=== PATIENT | female | born 1975 | race Caucasian/White ===

== ENCOUNTER 2017-01-25 05:27 | Inpatient (IN) | payer OTHER ==
[~2017-01-25] VITALS: Ht 175.3 cm; Wt 106.5 kg
[~2017-01-25 05:27] MED LIST: ATEN50TA41 PO; ATOR20TA9 PO; QUET25TA PO; SERT100T5 PO; TRIH5TAB2 PO; ZIPR60CA3 PO
[2017-01-25] MEDS ORDERED: SODIUM CHLORIDE 0.9% 1,000 ML IV ONE (05:42)
[2017-01-25] MEDS ORDERED: BUPR150T73 PO (06:16)
[2017-01-25 06:39] LABS: ASPARTATE AMINO TRANSFERASE 18 U/L (15-37); BLOOD UREA NITROGEN 13 mg/dL (7-18)
[2017-01-25 06:46] LABS: ACETAMINOPHEN < 2 mcg/mL (10-30)
[2017-01-25 08:54] VITALS: BP 113/76
[2017-01-25] MEDS ORDERED: POLYETHYLENE GLYCOL 17 GM PACKET PO PRN (09:30)
[2017-01-25] MEDS ORDERED: DOCUSATE 100 MG CAPSULE PO PRN (09:30)
[2017-01-25] MEDS ORDERED: ONDANSETRON 2MG/ML, 2ML IVP PRN (09:30)
[2017-01-25] MEDS ORDERED: BISACODYL 10 MG SUPP PR PRN (09:30)
[2017-01-25] MEDS: SODIUM CHLORIDE 0.9% IV SCH ×2 (10:51→21:00)
[2017-01-25] MEDS: MAGNESIUM SULFATE IV SCH ×2 (10:51→21:00)
[2017-01-25] MEDS: POTASSIUM CHLORIDE IV SCH ×2 (10:51→21:00)
[2017-01-25] MEDS: NICOTINE 14MG/24 HR PATCH.TD24 TD SCH (10:52)
[2017-01-25] MEDS: ENOXAPARIN 40 MG/0.4 ML SQ SCH (10:52)
[2017-01-25 13:39] VITALS: BP 132/91
[2017-01-25 18:38] VITALS: BP 136/77
[2017-01-25 18:38] LABS: DAU SCREEN DISCLAIMER
[2017-01-25] MEDS: ATORVASTATIN 20 MG TABLET PO SCH (20:18)
[2017-01-25] MEDS: ACETAMINOPHEN 325 MG TABLET PO PRN (20:18)
[2017-01-26 04:20] VITALS: BP 129/75
[2017-01-26 05:19] VITALS: BP 122/64
[2017-01-26 07:14] VITALS: BP 137/81
[2017-01-26 07:16] LABS: BLOOD UREA NITROGEN 5 mg/dL (7-18)
[2017-01-26] MEDS: ATENOLOL 50 MG TABLET PO SCH (09:42)
[2017-01-26] MEDS: NICOTINE 14MG/24 HR PATCH.TD24 TD SCH (09:47)
[2017-01-26] MEDS: ACETAMINOPHEN 325 MG TABLET PO PRN (09:47)
[2017-01-26] MEDS: ENOXAPARIN 40 MG/0.4 ML SQ SCH (09:47)
[2017-01-26] MEDS: QUETIAPINE 25MG TABLET PO SCH (12:54)
[2017-01-26 15:11] VITALS: BP 126/80
[2017-01-26] MEDS ORDERED: LORazepam 2 MG/ML, 1ML IV PRN ×5 (18:00)
[2017-01-26] MEDS ORDERED: LORazepam 1MG TABLET PO PRN ×4 (18:00)
[2017-01-26] MEDS ORDERED: LORazepam 0.5MG TABLET PO PRN (18:00)
[2017-01-26 19:37] VITALS: BP 155/95
[2017-01-26] MEDS: TRIHEXYPHENIDYL 2MG TABLET PO SCH (20:01)
[2017-01-26] MEDS: ZIPRASIDONE 20MG CAPSULE PO SCH (20:02)
[2017-01-26] MEDS: SERTRALINE 100MG TABLET PO SCH (20:03)
[2017-01-26] MEDS: ATORVASTATIN 20 MG TABLET PO SCH (20:03)
[2017-01-27 02:16] VITALS: BP 155/91
[2017-01-27 07:40] VITALS: BP 135/88
[2017-01-27] MEDS: ZIPRASIDONE 20MG CAPSULE PO SCH ×2 (09:00→21:08)
[2017-01-27] MEDS: TRIHEXYPHENIDYL 2MG TABLET PO SCH ×2 (09:00→21:09)
[2017-01-27] MEDS: ATENOLOL 50 MG TABLET PO SCH (09:02)
[2017-01-27] MEDS: QUETIAPINE 25MG TABLET PO SCH (09:02)
[2017-01-27] MEDS: SERTRALINE 100MG TABLET PO SCH ×2 (09:02→21:07)
[2017-01-27] MEDS: NICOTINE 14MG/24 HR PATCH.TD24 TD SCH (09:03)
[2017-01-27] MEDS: ENOXAPARIN 40 MG/0.4 ML SQ SCH (09:04)
[2017-01-27 13:05] VITALS: BP 130/88
[2017-01-27 20:00] VITALS: BP 121/79
[2017-01-27] MEDS: ATORVASTATIN 20 MG TABLET PO SCH (21:07)
[2017-01-28] MEDS: SERTRALINE 100MG TABLET PO SCH (07:53)
[2017-01-28] MEDS: ATENOLOL 50 MG TABLET PO SCH (07:53)
[2017-01-28 08:07] VITALS: BP 133/87
[2017-01-28] MEDS: NICOTINE 14MG/24 HR PATCH.TD24 TD SCH (09:00)
[2017-01-28] MEDS: QUETIAPINE 25MG TABLET PO SCH (09:00)
[2017-01-28] MEDS: TRIHEXYPHENIDYL 2MG TABLET PO SCH (09:00)
[2017-01-28] MEDS: ZIPRASIDONE 20MG CAPSULE PO SCH (09:00)
[2017-01-28] MEDS: ENOXAPARIN 40 MG/0.4 ML SQ SCH (09:02)
== END 2017-01-28 17:52 | DRG 917 ==
LOC: ED 06:58 → EDIP 06:59 → ED 07:17 → 4WST 08:33 → 3E 01-27 18:11
PROVIDERS: ADMIT Internal Medicine
DX: T43.292A Poisoning by other antidepressants, intentional self-harm, initial encounter (principal); G92 Toxic encephalopathy; E87.1 Hypo-osmolality and hyponatremia; F10.239 Alcohol dependence with withdrawal, unspecified; I45.81 Long QT syndrome; F31.9 Bipolar disorder, unspecified; I10 Essential (primary) hypertension; E78.5 Hyperlipidemia, unspecified; D75.89 Other specified diseases of blood and blood-forming organs; F17.210 Nicotine dependence, cigarettes, uncomplicated; E78.00 Pure hypercholesterolemia, unspecified
CPT/HCPCS: 36415; 80048; 80053; 80307; 80329; 82140; 82607; 82746; 84443; 84703; 85025; 93005; 96360; J1650; J3475; J3480; G0480; J2060; J7030

== ENCOUNTER 2018-10-04 11:49 | Emergency (ER) | payer OTHER ==
[~2018-10-04] VITALS: Ht 175.3 cm; Wt 108.0 kg
[~2018-10-04 11:49] MED LIST changes: +ATOR20TA37 PO; -ATOR20TA9 PO; +BUPR150T73 PO; +SERT100T32 PO; -SERT100T5 PO
[2018-10-04] MEDS ORDERED: MECLIZINE CHEWABLE 25 MG TAB ONE (12:23)
[2018-10-04] MEDS ORDERED: ONDANSETRON ODT 4 MG ONE (12:23)
--- NOTE | 2018-10-04 12:33 | NUR ---
MEDS GIVEN PER ERP ORDER. PT DESCRIBES SX OF VERTIGO. RECENT EAR IMPLANT BROKEN. PT PROVIDED WARM BLANKET, CALL LIGHT WITHIN REACH.
[2018-10-04 12:39] LABS: BASOPHILS # (AUTO) 0.02 x10^3/uL (0-0.1); BASOPHILS % (AUTO) 0 % (0-1); EOSINOPHILS % (AUTO) 3 % (1-7); LYMPHOCYTES # (AUTO) 2.53 x10^3/uL (1-3.4); LYMPHOCYTES % (AUTO) 42 % (22-44); MD NO; MEAN CORPUSCULAR HEMOGLOBIN 33.4 pg (27.0-34.8); MEAN CORPUSCULAR HGB CONC 33.5 g/dL (32.4-35.8); MEAN CORPUSCULAR VOLUME 99.9 fL (80-100); MEAN PLATELET VOLUME 7.9 fL (7.4-10.4); MONOCYTES # (AUTO) 0.41 x10^3/uL (0.2-0.8); MONOCYTES % (AUTO) 7 % (2-9); NEUTROPHILS # (AUTO) 2.83 x10^3/uL (1.8-6.8); NEUTROPHILS % (AUTO) 47 % (42-75); PLATELET COUNT 241 x10^3/uL (130-400); RED BLOOD COUNT 4.23 x10^6/uL (3.82-5.3); RED CELL DISTRIBUTION WIDTH 13.2 % (9.6-15.2)
[2018-10-04 12:49] LABS: ALBUMIN 3.9 g/dL (3.4-5.0); ANION GAP 6 mmol/L (5-15); CALCIUM 8.8 mg/dL (8.5-10.1); CHLORIDE 106 mmol/L (98-107); CREATININE 0.73 mg/dL (0.55-1.02)
[2018-10-04] MEDS ORDERED: ONDANSETRON ODT 4 MG PO ONE (13:00)
[2018-10-04] MEDS ORDERED: MECLIZINE CHEWABLE 25 MG TAB PO ONE (13:00)
[2018-10-04 13:14] VITALS: BP 121/66
--- NOTE | 2018-10-04 13:15 | NUR ---
PT WITH LESS DIZZINESS, ABLE TO AMBULATE TO BR WITHOUT ASSISTANCE. VSS/UPDATED IN COMPUTER. LAB RESULTS BACK, PT FOR RECHECK.
== END 2018-10-04 14:06 | disposition home or self-care (01) ==
LOC: ED 13:39
DX: R42 Dizziness and giddiness (principal)
CPT/HCPCS: 36415; 80048; 82040; 84703; 85025; 93005; 99284; Q0162

== ENCOUNTER 2020-12-17 11:08 | Emergency (ER) | payer OTHER ==
[~2020-12-17] VITALS: Ht 175.3 cm; Wt 110.4 kg
[~2020-12-17 11:08] MED LIST changes: -QUET25TA PO; +QUET25TA7 PO; +TRIH5TAB16 PO; -TRIH5TAB2 PO
--- NOTE | 2020-12-17 11:20 | NUR ---
PT AMBULATORY TO ROOM 35 W/ C/O R HIP PAIN AFTER PT STATES SHE TRIPPED AND FELL OVER DOG. DENIES HITTING HEAD/LOC. DENIES NECK PAIN. PT IS STILL ABLE TO AMBULATE BUT STATES WITH EXTREME PAIN. DENIES N/T. PT RESTING ON GURNEY. NADN. MONITORS APPLIED.
[2020-12-17] MEDS ORDERED: KETOROLAC 30 MG/1 ML ONE (11:48)
[2020-12-17] MEDS ORDERED: KETOROLAC 30 MG/1 ML IM ONE (12:00)
[2020-12-17 12:21] VITALS: BP 112/77
--- NOTE | 2020-12-17 12:21 | NUR ---
PT RESTING ON GURNEY. NADN. [place].
== END 2020-12-17 13:12 | disposition home or self-care (01) ==
LOC: ED 13:00
DX: S76.011A Strain of muscle, fascia and tendon of right hip, initial encounter (principal); S73.101A Unspecified sprain of right hip, initial encounter; F17.210 Nicotine dependence, cigarettes, uncomplicated; Z79.899 Other long term (current) drug therapy; X58.XXXA Exposure to other specified factors, initial encounter; Y93.89 Activity, other specified; Y92.89 Other specified places as the place of occurrence of the external cause; Y99.8 Other external cause status
CPT/HCPCS: 73502; 96372; 99283; J1885